=== PATIENT | male | born 1945 | race Caucasian/White ===

== ENCOUNTER 2016-09-04 13:54 | Emergency (ER) | payer MEDICARE, MEDICAID ==
[~2016-09-04] VITALS: Ht 185.4 cm; Wt 185.0 kg
[~2016-09-04 13:54] MED LIST: AMLO-512 PO; CLOP75TA32 PO; DIPH50 PO; ELIM560C; FOLI1TAB15 PO; HYDR-3965 PO; METO25TA6 PO; PANT40TA25 PO; PRED10TA3 PO; PREDNISONE
[2016-09-04] MEDS ORDERED: ONDANSETRON HCL 4 MG/2 ML VIAL IVP ONE (15:15)
[2016-09-04] MEDS ORDERED: MORPHINE SULFATE 4 MG/ML SYRINGE IVP ONE (15:15)
[2016-09-04] MEDS ORDERED: MAGNESIUM SULFATE 2 GM, MVI, ADULT NO.1 WITH VIT K 10 ML, THIAMINE HCL 100 MG, FOLIC AC... IV ONE ×5 (15:15)
[2016-09-04 15:35] LABS: BASOPHILS % (AUTO) 0.6 % (0.0-2.0); EOSINOPHILS % (AUTO) 1.7 % (1.0-6.0); HEMATOCRIT 41.8 % (41-53); HEMOGLOBIN 13.6 g/dL (13.5-17.5); LYMPHOCYTES # (AUTO) 2.1 K/uL (1.0-4.8); LYMPHOCYTES % (AUTO) 19.3 % (22.0-44.0); MEAN CORPUSCULAR HEMOGLOBIN 30.3 pg (26.0-34.0); MEAN CORPUSCULAR HGB CONC 32.5 G/dL (31.0-37.0); MEAN CORPUSCULAR VOLUME 93 fL (80-100); MONOCYTES # (AUTO) 0.6 K/uL (0.1-1.0); MONOCYTES % (AUTO) 5.3 % (2.0-9.0); NEUTROPHILS # (AUTO) 7.8 K/uL (1.8-7.7); NEUTROPHILS % (AUTO) 73.1 % (40.0-70.0); PLATELET COUNT (AUTO) 205 K/uL (150-450); RED BLOOD CELL COUNT(AUTO) 4.48 MIL/uL (4.50-5.90); RED CELL DISTRIBUTION WIDTH 15.6 % (11.5-14.5); WHITE BLOOD COUNT (AUTO) 10.6 K/uL (4.5-11.0)
[2016-09-04 15:41] LABS: PROTHROMBIN TIME 10.4 SEC (9.4-11.6)
[2016-09-04 15:56] LABS: CALCIUM, TOTAL 8.9 mg/dL (8.8-10.5); CREATININE 1.25 mg/dL (0.60-1.30); POTASSIUM 4.7 mmol/L (3.5-5.1)
[2016-09-04 16:00] LABS: ALBUMIN 3.4 g/dL (3.4-5.0); BILIRUBIN,TOTAL 0.8 mg/dL (0.1-1.0); TOTAL PROTEIN, SERUM 6.9 g/dL (6.4-8.2)
[2016-09-04 16:26] LABS: APPEARANCE,URINE CLEAR (CLEAR); GLUCOSE, URINE (UA) NEGATIVE (NEGATIVE); KETONES,URINE NEGATIVE (NEGATIVE); LEUKOCYTE ESTERASE ,URINE NEGATIVE (NEGATIVE); OCCULT BLOOD,URINE NEGATIVE (NEGATIVE); PROTEIN,URINE TRACE (NEGATIVE)
[2016-09-04 16:27] LABS: ADD UA MICROSCOPIC NO
[2016-09-04 16:56] LABS: GLUCOSE,POINT OF CARE 40 MG/DL (70-110)
[2016-09-04] MEDS ORDERED: DEXTROSE 50%-WATER 25 GM/50 ML SYRINGE IVP ONE (17:00)
[2016-09-04 17:31] LABS: GLUCOSE,POINT OF CARE 145 MG/DL (70-110)
[2016-09-04 18:52] LABS: GLUCOSE,POINT OF CARE 113 MG/DL (70-110)
[2016-09-04 19:26] VITALS: BP 118/71
[2016-12-07] MEDS ORDERED: ATOR20TA86 PO (14:03)
[2016-12-07] MEDS ORDERED: ASPI81 PO (14:03)
[2016-12-07] MEDS ORDERED: ALBU8HFA IH (14:03)
[2016-12-07] MEDS ORDERED: BISA10S PR (14:03)
[2016-12-07] MEDS ORDERED: ADV250 IH (14:03)
[2016-12-07] MEDS ORDERED: MULT-71 PO (14:03)
[2016-12-07] MEDS ORDERED: IPRA3AMP4 NEB (14:03)
[2016-12-07] MEDS ORDERED: TIOT185 IH (14:03)
[2016-12-07] MEDS ORDERED: CARV6 PO (14:03)
[2016-12-07] MEDS ORDERED: CHOL200018 PO (14:03)
[2016-12-07] MEDS ORDERED: NICO1PAT25 TD (14:03)
[2016-12-07] MEDS ORDERED: ACET-2247 PO (14:03)
[2016-12-07] MEDS ORDERED: HYDR-309 PO (14:03)
[2016-12-07] MEDS ORDERED: THIA100 PO (14:03)
[2016-12-07] MEDS ORDERED: MOM30 PO (14:03)
== END 2016-09-04 19:33 | disposition home or self-care (01) ==
LOC: EMS 13:58
DX: M51.36 Other intervertebral disc degeneration, lumbar region (principal); M50.320 Other cervical disc degeneration, mid-cervical region, unspecified level; G89.29 Other chronic pain; I10 Essential (primary) hypertension; I25.10 Atherosclerotic heart disease of native coronary artery without angina pectoris; F17.210 Nicotine dependence, cigarettes, uncomplicated
CPT/HCPCS: 36415; 80053; 80307; 81003; 82962; 85025; 85610; 93005; 96365; 96366; 96375; 99285; G0480; J2270; J2405; J3411; J3475; J3490 ×2; J7030

== ENCOUNTER → 2016-12-07 | Outpatient (CLI) | payer MEDICARE, MEDICAID ==
[~2016-12-07] MED LIST changes: +ACET-2247 PO; +ADV250 IH; +ALBU8HFA IH; +ASPI81 PO; +ATOR20TA86 PO; +BISA10S PR; +CARV6 PO; +CHOL200018 PO; -DIPH50 PO; -ELIM560C; +HYDR-309 PO; +IPRA3AMP4 NEB; +KETOROLAC TROMETHAMINE 30 MG/ML VIAL IVP ONE; +MOM30 PO; +MULT-71 PO; +NICO1PAT25 TD; -PRED10TA3 PO; -PREDNISONE; +THIA100 PO; +TIOT185 IH
[2016-12-07 13:53] VITALS: BP 111/67
== END | disposition home or self-care (01) ==
LOC: SRCNTR 13:40
PROVIDERS: ATTEND Internal Medicine
DX: J44.9 Chronic obstructive pulmonary disease, unspecified (principal); I50.9 Heart failure, unspecified; F17.210 Nicotine dependence, cigarettes, uncomplicated
CPT/HCPCS: G0463; J1885

== ENCOUNTER 2017-01-09 20:15 | Inpatient (IN) | payer MEDICARE, MEDICAID ==
[~2017-01-09] VITALS: Ht 185.4 cm; Wt 79.2 kg
[~2017-01-09 20:15] MED LIST changes: -AMLO-512 PO; -HYDR-3965 PO; -KETOROLAC TROMETHAMINE 30 MG/ML VIAL IVP ONE; -METO25TA6 PO; -PANT40TA25 PO
[2017-01-09 21:06] LABS: BASOPHILS % (AUTO) 0.7 % (0.0-2.0); EOSINOPHILS % (AUTO) 4.5 % (1.0-6.0); HEMATOCRIT 32.1 % (41-53); HEMOGLOBIN 10.9 g/dL (13.5-17.5); LYMPHOCYTES # (AUTO) 1.7 K/uL (1.0-4.8); LYMPHOCYTES % (AUTO) 16.7 % (22.0-44.0); MEAN CORPUSCULAR HEMOGLOBIN 30.3 pg (26.0-34.0); MEAN CORPUSCULAR VOLUME 89 fL (80-100); MONOCYTES # (AUTO) 0.7 K/uL (0.1-1.0); MONOCYTES % (AUTO) 6.5 % (2.0-9.0); NEUTROPHILS # (AUTO) 7.3 K/uL (1.8-7.7); NEUTROPHILS % (AUTO) 71.6 % (40.0-70.0); PLATELET COUNT (AUTO) 401 K/uL (150-450); RED CELL DISTRIBUTION WIDTH 16.2 % (11.5-14.5); WHITE BLOOD COUNT (AUTO) 10.2 K/uL (4.5-11.0)
[2017-01-09] MEDS ORDERED: [UNRECOGNIZED DRUG - CODE] PO (21:12)
[2017-01-09] MEDS ORDERED: TRAM50TA4 PO (21:12)
[2017-01-09] MEDS ORDERED: MORPHINE ER PO (21:12)
[2017-01-09 21:15] LABS: ANION GAP 9 mmol/L (8-16); CALCIUM, TOTAL 8.6 mg/dL (8.8-10.5); CARBON DIOXIDE 28 mmol/L (22-29); CHLORIDE 94 mmol/L (98-107); CREATININE 1.08 mg/dL (0.60-1.30); GLOMERULAR FILTR. RATE CALC > 60 mL/min (>60); POTASSIUM 4.4 mmol/L (3.5-5.1); SODIUM SERUM 131 mmol/L (136-145); UREA NITROGEN, BLOOD 15 mg/dL (7-18)
[2017-01-09 21:20] LABS: ALANINE AMINOTRANSFERASE 16 U/L (12-78); ALBUMIN 2.9 g/dL (3.4-5.0); ASPARTATE AMINOTRANSFERASE 15 U/L (15-37); BILIRUBIN,TOTAL 0.3 mg/dL (0.1-1.0); TOTAL PROTEIN, SERUM 6.8 g/dL (6.4-8.2)
[2017-01-09 21:29] LABS: LACTIC ACID 2.3 mmol/L (0.4-2.0)
[2017-01-09] MEDS ORDERED: PIPERACILLIN/TAZO 3.375 GM/D5W 50 ML IV ONE ×2 (21:30→22:30)
[2017-01-09] MEDS ORDERED: POTASSIUM CHL 20 MEQ/D5-0.45NS 1,000 ML IV ONE (21:30)
[2017-01-09] MEDS ORDERED: ONDANSETRON HCL 4 MG/2 ML VIAL IVP ONE (21:30)
[2017-01-09] MEDS ORDERED: HYDROmorphone 2 MG/ML SYRINGE IVP ONE (21:30)
[2017-01-09 21:31] LABS: PROTHROMBIN TIME 10.7 SEC (9.4-11.6)
[2017-01-09] MEDS ORDERED: ONDANSETRON HCL 4 MG/2 ML VIAL IVP PRN (22:30)
[2017-01-09] MEDS ORDERED: ACETAMINOPHEN 325 MG TABLET PO PRN ×2 (22:30→22:45)
[2017-01-09] MEDS ORDERED: 0.9% SODIUM CHLORIDE 10 ML SYRINGE IVP PRN (22:30)
[2017-01-09] MEDS ORDERED: HYDROmorphone 2 MG/ML SYRINGE IVP PRN (22:30)
[2017-01-09] MEDS ORDERED: OxyCODONE HCL/ACETAMINOPHEN 5-325 MG TABLET PO PRN (22:45)
[2017-01-09] MEDS ORDERED: MAGNESIUM HYDROXIDE SUSPENSION 30 ML UDCUP PO PRN (22:45)
[2017-01-09] MEDS ORDERED: ALBUTEROL SULFATE 2.5 MG/0.5 ML NEB SOLUTION NEB PRN (22:45)
[2017-01-09] MEDS ORDERED: SODIUM CHLORIDE 0.9% 1,000 ML IV ONE (22:45)
[2017-01-09 22:57] LABS: REFLEX LACTIC ACID? YES YES
[2017-01-09 23:09] VITALS: BP 128/77
[2017-01-09] MEDS: AmLODIPine BESYLATE 5 MG TABLET PO SCH (23:25)
[2017-01-09] MEDS: OxyCODONE HCL/ACETAMINOPHEN 5-325 MG TABLET PO PRN (23:25)
[2017-01-09] MEDS: HEPARIN SODIUM,PORCINE 5,000 UNITS/ML VIAL SQ SCH (23:25)
[2017-01-10] MEDS ORDERED: PIPERACILLIN/TAZO 3.375 GM/D5W 50 ML IV SCH (04:00)
[2017-01-10] MEDS: OxyCODONE HCL/ACETAMINOPHEN 5-325 MG TABLET PO PRN ×4 (04:45→15:59)
[2017-01-10 05:06] VITALS: BP 124/75
[2017-01-10 07:36] LABS: ALANINE AMINOTRANSFERASE 17 U/L (12-78); ALBUMIN 2.7 g/dL (3.4-5.0); ANION GAP 9 mmol/L (8-16); ASPARTATE AMINOTRANSFERASE 12 U/L (15-37); BILIRUBIN,TOTAL 0.5 mg/dL (0.1-1.0); CARBON DIOXIDE 26 mmol/L (22-29); CHLORIDE 95 mmol/L (98-107); CREATININE 1.06 mg/dL (0.60-1.30); GLOMERULAR FILTR. RATE CALC > 60 mL/min (>60); POTASSIUM 4.3 mmol/L (3.5-5.1); SODIUM SERUM 130 mmol/L (136-145); UREA NITROGEN, BLOOD 11 mg/dL (7-18)
[2017-01-10 07:38] VITALS: BP 147/70
[2017-01-10 07:47] LABS: CALCIUM, TOTAL 8.6 mg/dL (8.8-10.5)
[2017-01-10] MEDS ORDERED: SODIUM CHLORIDE 0.9% 0 ML IV ONE (08:31)
[2017-01-10] MEDS: HEPARIN SODIUM,PORCINE 5,000 UNITS/ML VIAL SQ SCH ×2 (08:35→15:59)
[2017-01-10] MEDS: CLOPIDOGREL BISULFATE 75 MG TABLET PO SCH (08:36)
[2017-01-10] MEDS: DOCUSATE SODIUM 100 MG CAPSULE PO SCH ×2 (08:36→20:56)
[2017-01-10] MEDS: MULTIVITAMINS WITH MINERALS, THERAPEUTIC TABLET PO SCH (08:36)
[2017-01-10] MEDS: PANTOPRAZOLE SODIUM 40 MG DR TABLET PO SCH (08:36)
[2017-01-10] MEDS: ASPIRIN 81 MG CHEWABLE TABLET PO SCH (08:36)
[2017-01-10 10:55] VITALS: BP 144/85
[2017-01-10 16:06] VITALS: BP 163/99
[2017-01-10] MEDS ORDERED: IOVERSOL 350 MG/ML 100 ML VIAL ONE (19:05)
[2017-01-10] MEDS ORDERED: SODIUM CHLORIDE 0.9% 100 ML ONE (19:05)
[2017-01-10] MEDS ORDERED: MORPHINE SULFATE 2 MG/ML SYRINGE IVP PRN ×2 (20:15→23:30)
[2017-01-10] MEDS: ATORVASTATIN CALCIUM 20 MG TABLET PO SCH (20:56)
[2017-01-10] MEDS: AmLODIPine BESYLATE 5 MG TABLET PO SCH (20:56)
[2017-01-10 21:00] VITALS: BP 176/95
[2017-01-10 23:31] VITALS: BP 142/93
[2017-01-11] MEDS: HEPARIN SODIUM,PORCINE 5,000 UNITS/ML VIAL SQ SCH ×4 (00:13→23:17)
[2017-01-11] MEDS: TEMAZEPAM 15 MG CAPSULE PO PRN (00:14)
[2017-01-11] MEDS: OxyCODONE HCL/ACETAMINOPHEN 5-325 MG TABLET PO PRN ×4 (01:03→15:54)
[2017-01-11] MEDS: MORPHINE SULFATE 4 MG/ML SYRINGE IVP PRN ×6 (04:11→23:05)
[2017-01-11 04:50] VITALS: BP 151/98
[2017-01-11] MEDS: PANTOPRAZOLE SODIUM 40 MG DR TABLET PO SCH (08:25)
[2017-01-11] MEDS: CLOPIDOGREL BISULFATE 75 MG TABLET PO SCH (08:25)
[2017-01-11] MEDS: DOCUSATE SODIUM 100 MG CAPSULE PO SCH ×2 (08:25→19:40)
[2017-01-11] MEDS: MULTIVITAMINS WITH MINERALS, THERAPEUTIC TABLET PO SCH (08:26)
[2017-01-11] MEDS: ASPIRIN 81 MG CHEWABLE TABLET PO SCH (08:26)
[2017-01-11 08:30] VITALS: BP 153/95
[2017-01-11] MEDS: AmLODIPine BESYLATE 5 MG TABLET PO SCH (19:40)
[2017-01-11] MEDS: ATORVASTATIN CALCIUM 20 MG TABLET PO SCH (19:46)
[2017-01-11 23:24] VITALS: BP 179/88
[2017-01-12] VITALS (7 sets, daily range): BP systolic 126–156; BP diastolic 86–114
[2017-01-12] MEDS: MORPHINE SULFATE 4 MG/ML SYRINGE IVP PRN ×7 (03:39→22:25)
[2017-01-12] MEDS: HEPARIN SODIUM,PORCINE 5,000 UNITS/ML VIAL SQ SCH ×3 (08:00→22:25)
[2017-01-12] MEDS: CLOPIDOGREL BISULFATE 75 MG TABLET PO SCH (12:43)
[2017-01-12] MEDS: ASPIRIN 81 MG CHEWABLE TABLET PO SCH (12:43)
[2017-01-12] MEDS: PANTOPRAZOLE SODIUM 40 MG DR TABLET PO SCH (12:43)
[2017-01-12] MEDS: DOCUSATE SODIUM 100 MG CAPSULE PO SCH ×2 (12:43→21:22)
[2017-01-12] MEDS: MULTIVITAMINS WITH MINERALS, THERAPEUTIC TABLET PO SCH (12:43)
[2017-01-12] MEDS: OxyCODONE HCL/ACETAMINOPHEN 5-325 MG TABLET PO PRN ×3 (13:06→23:29)
[2017-01-12] MEDS: ATORVASTATIN CALCIUM 20 MG TABLET PO SCH (21:22)
[2017-01-12] MEDS: AmLODIPine BESYLATE 5 MG TABLET PO SCH (21:22)
[2017-01-13] MEDS: TEMAZEPAM 15 MG CAPSULE PO PRN ×2 (00:19→20:39)
[2017-01-13] MEDS: MORPHINE SULFATE 4 MG/ML SYRINGE IVP PRN ×4 (04:20→20:40)
[2017-01-13 05:15] VITALS: BP 142/98
[2017-01-13 06:29] LABS: ANION GAP 12 mmol/L (8-16); CALCIUM, TOTAL 9.3 mg/dL (8.8-10.5); CARBON DIOXIDE 25 mmol/L (22-29); CHLORIDE 96 mmol/L (98-107); CREATININE 1.07 mg/dL (0.60-1.30); GLOMERULAR FILTR. RATE CALC > 60 mL/min (>60); SODIUM SERUM 133 mmol/L (136-145); UREA NITROGEN, BLOOD 17 mg/dL (7-18)
[2017-01-13 06:41] LABS: BASOPHILS % (AUTO) 0.7 % (0.0-2.0); EOSINOPHILS % (AUTO) 3.5 % (1.0-6.0); HEMATOCRIT 35.3 % (41-53); HEMOGLOBIN 11.8 g/dL (13.5-17.5); LYMPHOCYTES # (AUTO) 2.4 K/uL (1.0-4.8); LYMPHOCYTES % (AUTO) 25.1 % (22.0-44.0); MEAN CORPUSCULAR HEMOGLOBIN 29.9 pg (26.0-34.0); MEAN CORPUSCULAR HGB CONC 33.4 G/dL (31.0-37.0); MEAN CORPUSCULAR VOLUME 89 fL (80-100); MONOCYTES # (AUTO) 0.9 K/uL (0.1-1.0); MONOCYTES % (AUTO) 9.5 % (2.0-9.0); NEUTROPHILS # (AUTO) 5.9 K/uL (1.8-7.7); NEUTROPHILS % (AUTO) 61.2 % (40.0-70.0); PLATELET COUNT (AUTO) 375 K/uL (150-450); RED BLOOD CELL COUNT(AUTO) 3.95 MIL/uL (4.50-5.90); RED CELL DISTRIBUTION WIDTH 16.5 % (11.5-14.5); WHITE BLOOD COUNT (AUTO) 9.6 K/uL (4.5-11.0)
[2017-01-13 07:28] VITALS: BP 128/78
[2017-01-13] MEDS: PANTOPRAZOLE SODIUM 40 MG DR TABLET PO SCH (07:55)
[2017-01-13] MEDS: MULTIVITAMINS WITH MINERALS, THERAPEUTIC TABLET PO SCH (07:55)
[2017-01-13] MEDS: HEPARIN SODIUM,PORCINE 5,000 UNITS/ML VIAL SQ SCH ×3 (07:55→23:23)
[2017-01-13] MEDS: CLOPIDOGREL BISULFATE 75 MG TABLET PO SCH (07:56)
[2017-01-13] MEDS: DOCUSATE SODIUM 100 MG CAPSULE PO SCH ×2 (07:56→20:40)
[2017-01-13] MEDS: ASPIRIN 81 MG CHEWABLE TABLET PO SCH (07:56)
[2017-01-13] MEDS: OxyCODONE HCL/ACETAMINOPHEN 5-325 MG TABLET PO PRN ×3 (09:37→22:14)
[2017-01-13 11:32] VITALS: BP 135/85
[2017-01-13 15:55] VITALS: BP 128/96
[2017-01-13 19:36] VITALS: BP 126/82
[2017-01-13] MEDS: AmLODIPine BESYLATE 5 MG TABLET PO SCH (20:40)
[2017-01-13] MEDS: ATORVASTATIN CALCIUM 20 MG TABLET PO SCH (20:40)
[2017-01-13 23:21] VITALS: BP 105/66
[2017-01-14] MEDS: MORPHINE SULFATE 4 MG/ML SYRINGE IVP PRN ×7 (02:46→23:15)
[2017-01-14] MEDS: OxyCODONE HCL/ACETAMINOPHEN 5-325 MG TABLET PO PRN ×6 (03:33→23:15)
[2017-01-14 04:34] VITALS: BP 118/72
[2017-01-14 06:15] LABS: BASOPHILS % (AUTO) 0.5 % (0.0-2.0); EOSINOPHILS % (AUTO) 2.7 % (1.0-6.0); HEMATOCRIT 35.5 % (41-53); HEMOGLOBIN 12.1 g/dL (13.5-17.5); LYMPHOCYTES # (AUTO) 1.7 K/uL (1.0-4.8); LYMPHOCYTES % (AUTO) 17.7 % (22.0-44.0); MEAN CORPUSCULAR HEMOGLOBIN 30.4 pg (26.0-34.0); MEAN CORPUSCULAR HGB CONC 34.1 G/dL (31.0-37.0); MEAN CORPUSCULAR VOLUME 89 fL (80-100); MONOCYTES # (AUTO) 0.8 K/uL (0.1-1.0); MONOCYTES % (AUTO) 8.5 % (2.0-9.0); NEUTROPHILS # (AUTO) 6.8 K/uL (1.8-7.7); NEUTROPHILS % (AUTO) 70.6 % (40.0-70.0); PLATELET COUNT (AUTO) 384 K/uL (150-450); RED BLOOD CELL COUNT(AUTO) 3.99 MIL/uL (4.50-5.90); RED CELL DISTRIBUTION WIDTH 16.2 % (11.5-14.5); WHITE BLOOD COUNT (AUTO) 9.7 K/uL (4.5-11.0)
[2017-01-14 06:33] LABS: ANION GAP 12 mmol/L (8-16); CALCIUM, TOTAL 9.6 mg/dL (8.8-10.5); CARBON DIOXIDE 25 mmol/L (22-29); CHLORIDE 95 mmol/L (98-107); CREATININE 1.05 mg/dL (0.60-1.30); GLOMERULAR FILTR. RATE CALC > 60 mL/min (>60); POTASSIUM 4.3 mmol/L (3.5-5.1); SODIUM SERUM 132 mmol/L (136-145); UREA NITROGEN, BLOOD 19 mg/dL (7-18)
[2017-01-14] MEDS: HEPARIN SODIUM,PORCINE 5,000 UNITS/ML VIAL SQ SCH ×4 (08:50→23:15)
[2017-01-14] MEDS: PANTOPRAZOLE SODIUM 40 MG DR TABLET PO SCH (10:24)
[2017-01-14] MEDS: ASPIRIN 81 MG CHEWABLE TABLET PO SCH (10:25)
[2017-01-14] MEDS: MULTIVITAMINS WITH MINERALS, THERAPEUTIC TABLET PO SCH (10:25)
[2017-01-14] MEDS: CLOPIDOGREL BISULFATE 75 MG TABLET PO SCH (10:25)
[2017-01-14] MEDS: DOCUSATE SODIUM 100 MG CAPSULE PO SCH ×2 (10:25→20:10)
[2017-01-14 11:38] VITALS: BP 124/85
[2017-01-14 16:00] VITALS: BP 128/82
[2017-01-14 19:27] VITALS: BP 116/69
[2017-01-14] MEDS: AmLODIPine BESYLATE 5 MG TABLET PO SCH (20:10)
[2017-01-14] MEDS: ATORVASTATIN CALCIUM 20 MG TABLET PO SCH (20:10)
[2017-01-14 23:35] VITALS: BP 118/86
[2017-01-15] MEDS: TEMAZEPAM 15 MG CAPSULE PO PRN (01:14)
[2017-01-15] MEDS: OxyCODONE HCL/ACETAMINOPHEN 5-325 MG TABLET PO PRN ×3 (03:35→13:10)
[2017-01-15] MEDS: MORPHINE SULFATE 4 MG/ML SYRINGE IVP PRN ×4 (03:35→16:23)
[2017-01-15 04:55] VITALS: BP 128/76
[2017-01-15 07:46] LABS: BASOPHILS % (AUTO) 0.9 % (0.0-2.0); EOSINOPHILS % (AUTO) 2.2 % (1.0-6.0); HEMATOCRIT 34.6 % (41-53); HEMOGLOBIN 11.7 g/dL (13.5-17.5); LYMPHOCYTES # (AUTO) 1.2 K/uL (1.0-4.8); LYMPHOCYTES % (AUTO) 15.3 % (22.0-44.0); MEAN CORPUSCULAR HEMOGLOBIN 29.9 pg (26.0-34.0); MEAN CORPUSCULAR HGB CONC 33.8 G/dL (31.0-37.0); MEAN CORPUSCULAR VOLUME 89 fL (80-100); MONOCYTES # (AUTO) 0.7 K/uL (0.1-1.0); NEUTROPHILS # (AUTO) 5.9 K/uL (1.8-7.7); NEUTROPHILS % (AUTO) 72.6 % (40.0-70.0); PLATELET COUNT (AUTO) 393 K/uL (150-450); RED BLOOD CELL COUNT(AUTO) 3.91 MIL/uL (4.50-5.90); RED CELL DISTRIBUTION WIDTH 16.1 % (11.5-14.5); WHITE BLOOD COUNT (AUTO) 8.2 K/uL (4.5-11.0)
[2017-01-15 07:54] LABS: ANION GAP 9 mmol/L (8-16); CALCIUM, TOTAL 9.4 mg/dL (8.8-10.5); CARBON DIOXIDE 26 mmol/L (22-29); CHLORIDE 94 mmol/L (98-107); GLOMERULAR FILTR. RATE CALC > 60 mL/min (>60); SODIUM SERUM 129 mmol/L (136-145); UREA NITROGEN, BLOOD 22 mg/dL (7-18)
[2017-01-15] MEDS: HEPARIN SODIUM,PORCINE 5,000 UNITS/ML VIAL SQ SCH ×2 (07:56→16:23)
[2017-01-15] MEDS: MULTIVITAMINS WITH MINERALS, THERAPEUTIC TABLET PO SCH (07:56)
[2017-01-15] MEDS: PANTOPRAZOLE SODIUM 40 MG DR TABLET PO SCH (07:56)
[2017-01-15] MEDS: DOCUSATE SODIUM 100 MG CAPSULE PO SCH (07:56)
[2017-01-15] MEDS: ASPIRIN 81 MG CHEWABLE TABLET PO SCH (07:56)
[2017-01-15] MEDS: CLOPIDOGREL BISULFATE 75 MG TABLET PO SCH (07:56)
[2017-01-15 08:00] VITALS: BP 134/83
[2017-01-15 11:45] VITALS: BP 136/91
[2017-01-15] MEDS ORDERED: DSS100 PO (13:25)
[2017-01-15] MEDS ORDERED: AMLO-511 PO (13:25)
[2017-01-15] MEDS ORDERED: ACET-784 PO (13:25)
[2017-01-15] MEDS ORDERED: TEMA15CA PO (13:25)
[2017-01-15] MEDS ORDERED: PANT40TA25 PO (13:25)
[2017-01-15] MEDS ORDERED: HEPA500017 SQ (13:25)
[2017-01-15] MEDS ORDERED: CARV3 PO (13:25)
[2017-01-15] MEDS ORDERED: PERCT PO (13:25)
[2017-01-15] MEDS ORDERED: AUD NEB (13:30)
[2017-01-15] MEDS ORDERED: MUPI1OIN4 NS (13:30)
[2017-01-15 15:47] VITALS: BP 137/90
[2017-01-15] MEDS ORDERED: MUPIROCIN CALCIUM 2% 22 GM OINTMENT NASAL SCH (21:00)
== END 2017-01-15 18:30 | disposition home or self-care (01) | DRG 602 ==
LOC: EMS 20:20 → 6N 22:22
PROVIDERS: ADMIT Internal Medicine; ATTEND Internal Medicine
DX: L03.116 Cellulitis of left lower limb (principal); E43 Unspecified severe protein-calorie malnutrition; I96 Gangrene, not elsewhere classified; J44.9 Chronic obstructive pulmonary disease, unspecified; I73.9 Peripheral vascular disease, unspecified; Z68.29 Body mass index [BMI] 29.0-29.9, adult; E78.00 Pure hypercholesterolemia, unspecified; F17.210 Nicotine dependence, cigarettes, uncomplicated; F10.10 Alcohol abuse, uncomplicated; Y90.9 Presence of alcohol in blood, level not specified; I10 Essential (primary) hypertension; I25.10 Atherosclerotic heart disease of native coronary artery without angina pectoris; I25.82 Chronic total occlusion of coronary artery; I72.4 Aneurysm of artery of lower extremity; Z89.519 Acquired absence of unspecified leg below knee; Z91.19 Patient's noncompliance with other medical treatment and regimen; Z95.0 Presence of cardiac pacemaker; I49.5 Sick sinus syndrome
CPT/HCPCS: 75635; 83605; 87040; 87081; 93005; 93306; 93925; 93970; 96374; 96375; 99285; J1170; J1644; J2270; J2405; J2543; J3480; J7040; J7050